=== PATIENT | female | born 1965 | race Caucasian/White ===

== ENCOUNTER 2017-10-28 23:33 | Emergency (ER) | payer OTHER ==
[~2017-10-28] VITALS: Ht 157.5 cm; Wt 96.7 kg
[~2017-10-28 23:33] MED LIST: BLOOD PRESSURE MED; Bactrim,Septra DS 80 PO; FLEXERIL10 MG PO; Glucophage PO; LORTAB 5-325 M1 EACH PO; PERCOCET 5/31 TABLET PO; PREDNISONE50 MG PO; SAVELLA50 MG PO; Valium PO; Zestoretic,Prinzide PO
[2017-10-28 23:37] VITALS: BP 189/101
[2017-10-29] MEDS ORDERED: NORCO 5/3251 TABLET PO (01:45)
[2017-10-29] MEDS ORDERED: CLEOCIN300 MG PO (01:45)
== END 2017-10-29 02:18 | disposition home or self-care (01) ==
LOC: EME 23:33
PROC: 0H9CXZZ Drainage of Left Upper Arm Skin, External Approach (ICD-10-PCS; principal; 2017-10-28)
DX: L02.414 Cutaneous abscess of left upper limb (principal); Z88.8 Allergy status to other drugs, medicaments and biological substances
CPT/HCPCS: 87070; 87075; 87076; 87205; 99281; 99284

== ENCOUNTER 2017-11-02 19:13 | Emergency (ER) | payer OTHER ==
[~2017-11-02] VITALS: Ht 157.5 cm; Wt 95.3 kg
[~2017-11-02 19:13] MED LIST changes: +CLEOCIN300 MG PO; +NORCO 5/3251 TABLET PO
[2017-11-02 20:08] VITALS: BP 162/102
== END 2017-11-02 20:09 | disposition home or self-care (01) ==
LOC: EME 19:13
DX: Z48.01 Encounter for change or removal of surgical wound dressing (principal); Z88.8 Allergy status to other drugs, medicaments and biological substances
CPT/HCPCS: 99281; 99283